=== PATIENT | female | born 1945 | race Caucasian/White ===

== ENCOUNTER 2016-10-18 07:18 | Day surgery (SDC) | payer MEDICARE, OTHER ==
[~2016-10-18 07:18] MED LIST: ACET500CAP PO; ASAB PO; C25 PO; C5; CALCIUM PO; COZ50 PO; DSS PO; ELIQUIS 5 MG TAB5 MG PO; GLUCPH PO; HYDROCHLOROT12.5 MG PO; HYZAAR 50/12.51 TAB PO; HYZAAR1 TAB PO; IBU-200200 MG PO; LIPITOR10 PO; LOFIB160 PO; LOPRESS; MELATONIN1 M1 PO; MOBIC15 MG PO; MULTIVIT/MIN PO; NORCO1 TAB PO; STOOL SOFTEN240 MG PO; TRAZ100 PO; TUMERIC PO; ULTRAM50 PO; VIT C PO; VITAMIN B-122500 MCG SL; VITAMIN D31000 UNIT PO; VITC500 PO; VITD PO; ZINC PO; ZOCOR40 PO
== END 2016-10-18 23:59 | disposition home or self-care (01) ==
LOC: DMU 07:18
PROVIDERS: Internal Medicine Gastroenterology
PROC: 0DJD8ZZ Inspection of Lower Intestinal Tract, Via Natural or Artificial Opening Endoscopic (ICD-10-PCS; principal; 2016-10-18 09:00)
DX: Z12.11 Encounter for screening for malignant neoplasm of colon (principal); K57.30 Diverticulosis of large intestine without perforation or abscess without bleeding; I10 Essential (primary) hypertension; I48.91 Unspecified atrial fibrillation; E78.00 Pure hypercholesterolemia, unspecified; E11.9 Type 2 diabetes mellitus without complications; Z86.010 Personal history of colon polyps; Z88.0 Allergy status to penicillin; Z90.710 Acquired absence of both cervix and uterus; Z90.49 Acquired absence of other specified parts of digestive tract; Z98.890 Other specified postprocedural states; Z90.12 Acquired absence of left breast and nipple
CPT/HCPCS: 82962